=== PATIENT | female | born 1985 | race Caucasian/White ===

== ENCOUNTER 2020-06-23 17:14 | Outpatient (CLI) | payer OTHER ==
[~2020-06-23] VITALS: Ht 162.6 cm; Wt 83.6 kg
== END 2020-06-23 20:15 | disposition home or self-care (01) ==
LOC: LDOP 17:14 → EDSTATUS 06-26 17:14
PROVIDERS: ATTEND Obstetrics & Gynecology
DX: O09.93 Supervision of high risk pregnancy, unspecified, third trimester (principal); Z3A.39 39 weeks gestation of pregnancy
CPT/HCPCS: 59025; 76819